=== PATIENT | male | born 1990 | race Caucasian/White ===

== ENCOUNTER 2021-07-30 15:16 | Observation (INO) ==
[2021-07-30] MEDS ORDERED: DILTIAZEM INJ 100 MG in SODIUM CHLORIDE 0.9% 100 ML IV SCH (15:30)
[2021-07-30] MEDS ORDERED: DILTIAZEM 100 MG VIAL.ADD IV ONE (15:32)
[2021-07-30] MEDS ORDERED: ACETAMINOPHEN 325 MG TABLET PO PRN (15:50)
[2021-07-30] MEDS ORDERED: ONDANSETRON 4 MG/2 ML VIAL IV PRN (15:50)
[2021-07-30] MEDS ORDERED: POTASSIUM CHLORIDE 20 MEQ TABLET PO STA (16:03)
[2021-07-30] MEDS ORDERED: METOPROLOL TARTRATE 5 MG/5 ML VIAL IV STA ×2 (16:33)
[2021-07-30] MEDS ORDERED: MAGNESIUM SULF RIDER 2 GM/50 ML PREMIX IV STA (16:45)
[2021-07-30 17:54] LABS: Barbiturates Screen,Urine Negative (Negative); Benzodiazepines Screen,Urine Negative (Negative); Cannabinoid Screen,Urine Negative (Negative); Opiate Screen,Urine Negative (Negative); Phencyclidine Screen,Urine Negative (Negative)
[2021-07-30] MEDS: ASCORBIC ACID 500 MG TABLET PO SCH (20:48)
[2021-07-30] MEDS: DOCUSATE SODIUM 100 MG CAPSULE PO SCH (20:48)
[2021-07-30] MEDS ORDERED: METOPROLOL TARTRATE 25 MG TABLET PO SCH (21:00)
[2021-07-30] MEDS ORDERED: ENOXAPARIN 80 MG/0.8 ML SYRINGE SUBCUT SCH (23:00)
[2021-07-31 05:49] LABS: Calcium 8.7 MG/DL (8.5-10.1); Free T4 (Free Thyroxine) 1.22 NG/DL (0.76-1.46); Osmolality,Calculated 276.4 MOS/KG (273-304); Potassium 3.9 MMOL/L (3.5-5.1)
[2021-07-31] MEDS ORDERED: METOPROLOL TARTRATE 5 MG/5 ML VIAL IV PRN (07:50)
[2021-07-31] MEDS ORDERED: ALPRAZolam 0.5 MG TABLET PO PRN (08:15)
[2021-07-31] MEDS ORDERED: ZALEPLON 5 MG CAPSULE PO PRN (08:16)
[2021-07-31] MEDS ORDERED: SOTALOL 80 MG TABLET PO SCH (09:00)
[2021-07-31] MEDS: APIXABAN 5 MG TABLET PO SCH ×2 (09:23→21:01)
[2021-07-31] MEDS: MAGNESIUM OXIDE 400 MG TABLET PO SCH (09:24)
[2021-07-31] MEDS: POTASSIUM CHLORIDE 10 MEQ TABLET PO SCH (09:24)
[2021-07-31] MEDS: DOCUSATE SODIUM 100 MG CAPSULE PO SCH ×3 (09:25→21:03)
[2021-07-31] MEDS: METOPROLOL TARTRATE 25 MG TABLET PO SCH ×2 (09:25→21:05)
[2021-07-31] MEDS: PANTOPRAZOLE 40 MG TABLET PO SCH (09:26)
[2021-07-31] MEDS: ASCORBIC ACID 500 MG TABLET PO SCH ×2 (09:28→21:01)
[2021-07-31] MEDS: SERTRALINE 25 MG TABLET PO SCH ×2 (21:01→21:03)
[2021-08-01 04:31] LABS: Basophils % 0.3 % (0.0-0.8); Eosinophils # 0.1 10*3/uL (0.0-0.87); Eosinophils % 1.6 % (0.00-10.9); Hematocrit 44.1 VOL% (42.0-52.0); Hemoglobin 14.6 GM/DL (14.0-18.0); Immature Granulocytes % 0.2 %; Immature Granulocytes Absolute 0.01 #; Lymphocytes # 1.9 10*3/uL (1.4-4.0); Lymphocytes % 31.3 % (21.2-54.2); Mean Corpuscular HGB Conc 33.1 GM/DL (32-36); Mean Corpuscular Volume 89.6 FL (87-102); Mean Platelet Volume 9.4 FL (9.6-12.0); Monocytes % 10.7 % (1.7-12.7); Neutrophils % 55.9 % (38.7-73.9); Platelet Count 278 T/CUMM (130-400); Red Blood Count 4.92 MC/CUMM (3.8-5.5); Red Cell Distribution Width 11.9 % (9.3-17.3); White Blood Count 6.1 T/CUMM (4-12)
[2021-08-01 04:51] LABS: Albumin 2.7 G/DL (3.4-5.0); Bilirubin,Total 0.8 MG/DL (0.20-1.00); Calcium 8.6 MG/DL (8.5-10.1); Osmolality,Calculated 282.1 MOS/KG (273-304); Total Protein 5.9 G/DL (6.4-8.2)
[2021-08-01] MEDS ORDERED: METOPROLOL TARTRATE 25 MG TABLET PO SCH (09:00)
[2021-08-01] MEDS: PANTOPRAZOLE 40 MG TABLET PO SCH (10:10)
[2021-08-01] MEDS: MAGNESIUM OXIDE 400 MG TABLET PO SCH (10:10)
[2021-08-01] MEDS: ASCORBIC ACID 500 MG TABLET PO SCH (10:11)
[2021-08-01] MEDS: POTASSIUM CHLORIDE 10 MEQ TABLET PO SCH (10:11)
[2021-08-01] MEDS: APIXABAN 5 MG TABLET PO SCH (10:11)
[2021-08-01] MEDS: DOCUSATE SODIUM 100 MG CAPSULE PO SCH (10:13)
[2021-08-01 16:45] VITALS: BP 110/59
== END 2021-08-01 17:33 | disposition home health service (06) ==
LOC: EDBD → EDUNIT# → N.EDINP 15:16 → N.ED 15:16 → N.TELES 17:29
PROVIDERS: ADMIT Family Medicine; ATTEND Family Medicine

== ENCOUNTER 2021-12-31 20:16 | Observation (INO) ==
[2021-12-31] MEDS ORDERED: DILTIAZEM 100 MG VIAL.ADD IV ONE (20:24)
[2021-12-31] MEDS ORDERED: DILTIAZEM 25 MG/5 ML VIAL IV ONE (20:25)
[2021-12-31] MEDS ORDERED: METOPROLOL TARTRATE 5 MG/5 ML VIAL IV ONE (20:26)
[2021-12-31] MEDS ORDERED: METOPROLOL TARTRATE 5 MG/5 ML VIAL IV STA (20:33)
[2021-12-31] MEDS ORDERED: SODIUM CHLORIDE 0.9% 500 ML IV STA (20:33)
[2021-12-31] MEDS ORDERED: ASPIRIN 325 MG TABLET PO STA (20:33)
[2021-12-31] MEDS ORDERED: ENOXAPARIN 100 MG/ML SYRINGE SUBCUT STA (20:33)
[2021-12-31 20:43] LABS: Basophils % 0.3 % (0.0-0.8); Eosinophils # 0.1 10*3/uL (0.0-0.87); Eosinophils % 1.1 % (0.00-10.9); Hematocrit 46.8 VOL% (42.0-52.0); Hemoglobin 15.7 GM/DL (14.0-18.0); Immature Granulocytes % 0.1 %; Immature Granulocytes Absolute 0.01 #; Lymphocytes # 3.9 10*3/uL (1.4-4.0); Lymphocytes % 49.2 % (21.2-54.2); Mean Corpuscular HGB Conc 33.5 GM/DL (32-36); Mean Platelet Volume 8.9 FL (9.6-12.0); Neutrophils % 41.3 % (38.7-73.9); Platelet Count 322 T/CUMM (130-400); Red Blood Count 5.38 MC/CUMM (3.8-5.5); Red Cell Distribution Width 12.1 % (9.3-17.3); White Blood Count 7.9 T/CUMM (4-12)
[2021-12-31] MEDS ORDERED: DILTIAZEM INJ 100 MG in SODIUM CHLORIDE 0.9% 100 ML IV SCH (21:00)
[2021-12-31 21:12] LABS: Albumin 3.2 G/DL (3.4-5.0); Bilirubin,Total 0.4 MG/DL (0.20-1.00); Calcium 8.7 MG/DL (8.5-10.1); Free T4 (Free Thyroxine) 0.95 NG/DL (0.76-1.46); Osmolality,Calculated 283.5 MOS/KG (273-304); Potassium 3.6 MMOL/L (3.5-5.1); Thyroid Stimulating Hormone 2.28 uIU/ml (0.358-3.74); Total Protein 6.7 G/DL (6.4-8.2)
[2021-12-31 21:44] LABS: PT Patient Result 11.6 SECS (10.5-12.0)
[2021-12-31 22:08] LABS: Bacteria,Urine Occasional /HPF (Few); Mucus,Urine Occasional /LPF (Occasional)
[2021-12-31 22:09] LABS: Bilirubin,Urine Negative (Negative); Blood, Urine Negative (Negative); Glucose,Urine (UA) Negative (Negative); Ketones,Urine Negative (Negative); Nitrite,Urine Negative (Negative); Protein,Urine Negative (Negative); Urine Appearance CLEAR (Clear); Urine Color Yellow (Yellow); Urine Specific Gravity 1.015 (1.001-1.035); Urine Urobilinogen 0.2 eU/dL (<2.0)
[2021-12-31 22:21] LABS: Barbiturates Screen,Urine Negative (Negative); Benzodiazepines Screen,Urine Negative (Negative); Cannabinoid Screen,Urine Negative (Negative); Opiate Screen,Urine Negative (Negative); Phencyclidine Screen,Urine Negative (Negative)
[2022-01-01] MEDS ORDERED: ONDANSETRON 4 MG/2 ML VIAL IV PRN (00:47)
[2022-01-01] MEDS ORDERED: ACETAMINOPHEN 325 MG TABLET PO PRN (00:47)
[2022-01-01] MEDS ORDERED: SODIUM CHLORIDE 0.9% 1,000 ML IV SCH (00:47)
[2022-01-01 04:57] LABS: Basophils % 0.3 % (0.0-0.8); Eosinophils % 0.3 % (0.00-10.9); Hematocrit 46.8 VOL% (42.0-52.0); Hemoglobin 15.8 GM/DL (14.0-18.0); Immature Granulocytes % 0.3 %; Immature Granulocytes Absolute 0.02 #; Lymphocytes # 1.9 10*3/uL (1.4-4.0); Lymphocytes % 28.2 % (21.2-54.2); Mean Corpuscular HGB Conc 33.8 GM/DL (32-36); Mean Corpuscular Volume 88.1 FL (87-102); Mean Platelet Volume 9.4 FL (9.6-12.0); Monocytes % 7.5 % (1.7-12.7); Neutrophils % 63.4 % (38.7-73.9); Platelet Count 341 T/CUMM (130-400); Red Blood Count 5.31 MC/CUMM (3.8-5.5); Red Cell Distribution Width 12.1 % (9.3-17.3); White Blood Count 6.7 T/CUMM (4-12)
[2022-01-01 05:19] LABS: Albumin 2.8 G/DL (3.4-5.0); Bilirubin,Total 0.7 MG/DL (0.20-1.00); Calcium 8.7 MG/DL (8.5-10.1); Osmolality,Calculated 283.1 MOS/KG (273-304); Potassium 3.6 MMOL/L (3.5-5.1); Risk Ratio 2.8; Total Protein 6.6 G/DL (6.4-8.2); VLDL Cholesterol 20.6 MG/DL
[2022-01-01] MEDS ORDERED: POTASSIUM CHLORIDE 20 MEQ TABLET PO ONE (08:26)
[2022-01-01] MEDS ORDERED: METOPROLOL TARTRATE 25 MG TABLET PO SCH (09:00)
[2022-01-01] MEDS: DOCUSATE SODIUM 100 MG CAPSULE PO SCH ×2 (09:21→21:05)
[2022-01-01] MEDS: PANTOPRAZOLE 40 MG TABLET PO SCH (09:21)
[2022-01-01] MEDS: APIXABAN 5 MG TABLET PO SCH ×2 (09:22→21:05)
[2022-01-01] MEDS: DILTIAZEM 30 MG TABLET PO SCH ×4 (09:26→21:04)
[2022-01-01] MEDS: FLECAINIDE 50 MG TABLET PO SCH ×2 (11:40→21:04)
[2022-01-01] MEDS ORDERED: ENOXAPARIN 40 MG/0.4 ML SYRINGE SUBCUT SCH (21:00)
[2022-01-01] MEDS: SERTRALINE 25 MG TABLET PO SCH ×2 (21:05→21:08)
[2022-01-02 05:33] LABS: Basophils % 0.3 % (0.0-0.8); Eosinophils # 0.2 10*3/uL (0.0-0.87); Eosinophils % 2.2 % (0.00-10.9); Hematocrit 45.5 VOL% (42.0-52.0); Hemoglobin 15.1 GM/DL (14.0-18.0); Immature Granulocytes % 0.4 %; Immature Granulocytes Absolute 0.03 #; Lymphocytes # 2.2 10*3/uL (1.4-4.0); Lymphocytes % 32.8 % (21.2-54.2); Mean Corpuscular HGB Conc 33.2 GM/DL (32-36); Mean Platelet Volume 9.6 FL (9.6-12.0); Neutrophils % 54.3 % (38.7-73.9); Platelet Count 313 T/CUMM (130-400); Red Blood Count 5.11 MC/CUMM (3.8-5.5); Red Cell Distribution Width 12.1 % (9.3-17.3); White Blood Count 6.8 T/CUMM (4-12)
[2022-01-02 05:54] LABS: Albumin 2.6 G/DL (3.4-5.0); Bilirubin,Total 0.7 MG/DL (0.20-1.00); Calcium 8.5 MG/DL (8.5-10.1); Osmolality,Calculated 279.4 MOS/KG (273-304); Potassium 3.7 MMOL/L (3.5-5.1); Total Protein 6.4 G/DL (6.4-8.2)
[2022-01-02] MEDS ORDERED: DILTIAZEM CD 120 MG CAPSULE PO SCH (09:00)
[2022-01-02] MEDS: APIXABAN 5 MG TABLET PO SCH (09:04)
[2022-01-02] MEDS: DOCUSATE SODIUM 100 MG CAPSULE PO SCH (09:04)
[2022-01-02] MEDS: PANTOPRAZOLE 40 MG TABLET PO SCH (09:05)
[2022-01-02] MEDS: FLECAINIDE 50 MG TABLET PO SCH (09:07)
[2022-01-02 16:07] VITALS: BP 116/67
== END 2022-01-02 17:46 | disposition home or self-care (01) ==
LOC: N.ED 20:16 → N.EDINP 20:16 → N.TELES 23:50
PROVIDERS: ADMIT Family Medicine; ATTEND Family Medicine